=== PATIENT | female | born 1990 | race Caucasian/White ===

== ENCOUNTER → 2016-07-09 | Outpatient (CLI) | payer OTHER | END | disposition home or self-care (01) | LOC: C.PAPS 17:56 | PROVIDERS: ATTEND Obstetrics & Gynecology | DX: Z01.411 Encounter for gynecological examination (general) (routine) with abnormal findings (principal); R87.612 Low grade squamous intraepithelial lesion on cytologic smear of cervix (LGSIL) ==

== ENCOUNTER → 2017-02-03 | Outpatient (CLI) | payer OTHER ==
[2017-02-03 14:12] LABS: BASO % 0.2 %; BASO ABS # 0.02 K/uL (0-0.2); COMPLETE YES; EOS % 2.2 %; HEMATOCRIT 43.1 % (37-47); IG% 0.1 %; LYMPH % 18.4 %; LYMPH ABS # 1.71 K/uL (1.2-3.4); MEAN CELL VOLUME 88.1 fL (80-100); MEAN CORPUSCULAR HEMOGLOBIN 31.3 pg (25-34); MEAN CORPUSCULAR HGB CONC 35.5 g/dl (32-36); MEAN PLATELET VOLUME 11.5 fL (7.4-10.4); MONO % 5.4 %; NEUT % 73.7 %; PLATELET COUNT 180 K/uL (130-400); RED BLOOD COUNT 4.89 M/uL (4.2-5.4)
[2017-02-03 15:11] LABS: CHOLESTEROL/HDL RATIO 1.8; THYROID STIMULATING HORMONE 1.06 uIu/ml (0.300-4.500)
== END | disposition home or self-care (01) ==
LOC: C.LABBC 10:54
PROVIDERS: ATTEND Physician Assistant
DX: R53.83 Other fatigue (principal); Z00.00 Encounter for general adult medical examination without abnormal findings

== ENCOUNTER → 2017-02-08 | Outpatient (CLI) | payer OTHER ==
--- NOTE | 2017-02-08 12:06 | DIAGNOSTIC IMAGING REPORT ---
SOFT TISS HEAD/NECK-THYROID CLINICAL HISTORY: 26 years-old Female with E01.0. Enlarged thyroid COMPARISON: None available TECHNIQUE: Multiple real time sonographic images of the thyroid were obtained accessing dan scale appearance and color doppler flow. FINDINGS: MEASUREMENTS: Right lobe: 4.2 x 1.9 x 1.0 cm Left lobe: 4.7 x 1.8 x 2.0 cm Isthmus: 0.2 cm PARENCHYMA: The thyroid parenchymal echotexture is generally homogeneous. 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 There is a large partially cystic and solid circumscribed ovoid nodule of the left mid thyroid, 2.3 x 1.3 x 1.6 cm which is cystic with an eccentric solid component with internal vascularity. Probable cyst of the superior left thyroid is seen, 0.4 cm. IMPRESSION: Circumscribed cystic nodule with eccentric solid component is seen within the mid left thyroid lobe measuring up to 2.3 cm. Morphologically this nodule would be categorized as low suspicion according to the [place] [employer] guidelines, however exceeds 1.5 cm therefore further evaluation with FNA is recommended. The above report was generated using voice recognition software. It may contain grammatical, syntax or spelling errors. Electronically signed by: Fracisco Moralez M.D. 02/08/2017 12:05 PM Dictated Date/Time: 02/08/2017 12:01 PM
== END | disposition home or self-care (01) ==
LOC: C.ULTRBC 11:18
PROVIDERS: ATTEND Physician Assistant
DX: E01.0 Iodine-deficiency related diffuse (endemic) goiter (principal)

== ENCOUNTER → 2017-02-25 | Outpatient (CLI) | payer OTHER ==
--- NOTE | 2017-02-25 11:58 | DIAGNOSTIC IMAGING REPORT ---
GUIDANCE NEEDLE PLACEMENT CLINICAL HISTORY: THYROID NODULE, 02/08[place]17 [place] [facility] [place]CHNI[place]: Ultrasound-guided fine-needle aspiration COMPARISON STUDY: Thyroid ultrasound dated 02/08/2017 FINDINGS: Following informed consent and description of procedure, a single pass with a 25-gauge needle was made to the complex nodule of the left thyroid. Pathology initially indicated adequate specimen material. There are no complications. IMPRESSION: Successful left thyroid fine-needle aspiration The above report was generated using voice recognition software. It may contain grammatical, syntax or spelling errors. Electronically signed by: Pawan Finley M.D. 02/25/2017 11:57 AM Dictated Date/Time: 02/25/2017 11:56 AM
== END | disposition home or self-care (01) ==
LOC: C.ULTR 10:59
PROVIDERS: ATTEND Physician Assistant
DX: E04.1 Nontoxic single thyroid nodule (principal)

== ENCOUNTER → 2017-02-28 | Outpatient (CLI) | payer OTHER | END | disposition home or self-care (01) | LOC: C.PATHSPEC 18:16 | PROVIDERS: ATTEND Obstetrics & Gynecology | DX: R87.612 Low grade squamous intraepithelial lesion on cytologic smear of cervix (LGSIL) (principal); N72 Inflammatory disease of cervix uteri ==

== ENCOUNTER → 2017-09-05 | Outpatient (CLI) | payer OTHER | END | disposition home or self-care (01) | LOC: C.PAPS 09:45 | PROVIDERS: ATTEND Obstetrics & Gynecology | DX: R87.612 Low grade squamous intraepithelial lesion on cytologic smear of cervix (LGSIL) (principal); R87.610 Atypical squamous cells of undetermined significance on cytologic smear of cervix (ASC-US) ==